=== PATIENT | female | born 1935 | race Caucasian/White ===

== ENCOUNTER → 2018-02-03 | Outpatient (CLI) | payer MEDICARE | END | disposition home or self-care (01) | LOC: RAD 11:42 | PROVIDERS: ATTEND Neurological Surgery | DX: M47.892 Other spondylosis, cervical region (principal); M47.896 Other spondylosis, lumbar region; M47.894 Other spondylosis, thoracic region; M40.295 Other kyphosis, thoracolumbar region; M54.16 Radiculopathy, lumbar region; M71.30 Other bursal cyst, unspecified site; M48.061 Spinal stenosis, lumbar region without neurogenic claudication | CPT/HCPCS: 72050; 72072; 72082; 72110 ==

== ENCOUNTER → 2018-02-21 | Outpatient (CLI) | payer MEDICARE ==
[~2018-02-21] MED LIST: CYAN1TAB29 PO; LISI-170 PO; calcium PO; simvastatin PO; vitamin d PO
[2018-02-21 15:12] LABS: BASOPHILS # (AUTO) 0.06 x10^3/uL (0-0.1); BASOPHILS % (AUTO) 1 % (0-1); EOSINOPHILS # (AUTO) 0.23 x10^3/uL (0-0.4); EOSINOPHILS % (AUTO) 3 % (1-7); LYMPHOCYTES # (AUTO) 2.56 x10^3/uL (1-3.4); LYMPHOCYTES % (AUTO) 36 % (22-44); MD NO; MEAN CORPUSCULAR HEMOGLOBIN 29.6 pg (27.0-34.8); MEAN CORPUSCULAR HGB CONC 33.3 g/dL (32.4-35.8); MEAN CORPUSCULAR VOLUME 88.9 fL (80-100); MEAN PLATELET VOLUME 9.1 fL (7.4-10.4); MONOCYTES # (AUTO) 0.68 x10^3/uL (0.2-0.8); MONOCYTES % (AUTO) 10 % (2-9); NEUTROPHILS # (AUTO) 3.58 x10^3/uL (1.8-6.8); NEUTROPHILS % (AUTO) 50 % (42-75); PLATELET COUNT 269 x10^3/uL (130-400); RED BLOOD COUNT 4.84 x10^6/uL (3.82-5.3)
[2018-02-21 15:25] LABS: ALANINE AMINOTRANSFERASE 19 U/L (12-78); ALBUMIN 3.5 g/dL (3.4-5.0); ANION GAP 5 mmol/L (5-15); CALCIUM 9.4 mg/dL (8.5-10.1); CHLORIDE 103 mmol/L (98-107)
[2018-02-21 15:27] LABS: ALKALINE PHOSPHATASE 64 U/L (45-117); BILIRUBIN,TOTAL 0.3 mg/dL (0.2-1.0); TOTAL PROTEIN 6.9 g/dL (6.4-8.2)
[2018-02-21 15:31] LABS: INTERNATIONAL NORMALIZED RATIO 0.95 (0.93-1.1); PROTHROMBIN TIME 9.9 Seconds (9.6-11.5)
== END | disposition home or self-care (01) ==
LOC: STAR 14:06
PROVIDERS: ATTEND Neurological Surgery
DX: Z01.818 Encounter for other preprocedural examination (principal); J98.11 Atelectasis; M51.36 Other intervertebral disc degeneration, lumbar region; M41.86 Other forms of scoliosis, lumbar region; M48.061 Spinal stenosis, lumbar region without neurogenic claudication; M71.30 Other bursal cyst, unspecified site; I10 Essential (primary) hypertension
CPT/HCPCS: 36415; 71046; 72110; 80053; 85025; 85610; 85730; 93005

== ENCOUNTER → 2018-04-05 | Outpatient (CLI) | payer MEDICARE ==
[~2018-04-05] MED LIST changes: +CYCL5TAB PO; +DOCU-131 PO; +HYDR-3240 PO; +TRAM50TA2 PO
== END | disposition home or self-care (01) ==
LOC: RAD 10:29
PROVIDERS: ATTEND Neurological Surgery
DX: M47.816 Spondylosis without myelopathy or radiculopathy, lumbar region (principal); M85.88 Other specified disorders of bone density and structure, other site
CPT/HCPCS: 72114

== ENCOUNTER → 2018-08-01 | Outpatient (CLI) | payer MEDICARE | END | disposition home or self-care (01) | LOC: RAD 10:16 | PROVIDERS: ATTEND Neurological Surgery | DX: M53.2X6 Spinal instabilities, lumbar region (principal); M41.86 Other forms of scoliosis, lumbar region; M47.816 Spondylosis without myelopathy or radiculopathy, lumbar region; M25.78 Osteophyte, vertebrae; M43.8X4 Other specified deforming dorsopathies, thoracic region | CPT/HCPCS: 72110 ==